=== PATIENT | female | born 1985 | race Caucasian/White ===

== ENCOUNTER 2024-09-25 02:00 | Inpatient (IN) | payer MEDICAID ==
[~2024-09-25] VITALS: Ht 152.4 cm; Wt 84.0 kg
[2024-09-25 09:16] VITALS: BP 126/92; PULSE 99; RESP 20; TEMP 97.8; O2SAT 99
[2024-09-25] MEDS ORDERED: mag hydrox/Alum hydrox/simeth 30ml oral suspension PO PRN (09:25)
[2024-09-25] MEDS ORDERED: magnesium hydroxide 30ml (MOM) UD suspension PO PRN (09:25)
[2024-09-25] MEDS ORDERED: acetaminophen 325mg tablet PO PRN ×2 (09:25)
[2024-09-25] MEDS ORDERED: NICOTINE POLACRILEX 2 MG LOZENGE BC PRN (09:25)
[2024-09-25] MEDS ORDERED: loperamide 2mg capsule PO PRN (09:25)
[2024-09-25 10:15] VITALS: RESP 20; O2SAT 100
[2024-09-25] MEDS ORDERED: PANT40SU2 PO (10:53)
[2024-09-25] MEDS ORDERED: SUCR1TAB PO (10:53)
[2024-09-25] MEDS ORDERED: ONDA-245 PO (10:53)
[2024-09-25] MEDS ORDERED: NO HOME MEDS (10:56)
[2024-09-25] MEDS ORDERED: magnesium Cl slow-release 64mg tablet PO PRN (16:30)
[2024-09-25] MEDS ORDERED: potassium Cl 20 mEq SR tablet PO PRN (16:30)
[2024-09-25] MEDS: ibuprofen tablet 400 MG TABLET PO PRN (17:13)
[2024-09-25 19:00] VITALS: RESP 14; O2SAT 98
[2024-09-25 19:07] LABS: ALANINE AMINOTRANSFERASE 32 U/L (12-78); ALBUMIN 2.9 G/DL (3.4-5.0); ALBUMIN/GLOBULIN RATIO 0.9 (1.1-1.5); ALKALINE PHOSPHATASE 76 IU/L (46-116); ANION GAP 2 (8-16); ASPARTATE AMINO TRANSFERASE 51 U/L (10-37); BILIRUBIN,TOTAL 0.7 MG/DL (0.1-1.0); BLOOD UREA NITROGEN 9 MG/DL (7-18); BUN/CREATININE RATIO 12.3 (10.0-20.0); CALCIUM 8.6 MG/DL (8.5-10.1); CHLORIDE 106 MMOL/L (99-107); CREATININE 0.73 MG/DL (0.40-0.90); GLUCOSE 76 MG/DL (70-104); MAGNESIUM 1.7 MG/DL (1.5-2.4); POTASSIUM 3.2 MMOL/L (3.5-5.1); SODIUM 141 MMOL/L (135-145); TOTAL PROTEIN 6.1 G/DL (6.4-8.2); eCRCL 73 ML/MIN; eGFR 88 ML/MIN
[2024-09-25] MEDS: K and/or MAG REPLACEMENT MC SCH (19:39)
[2024-09-25 20:00] VITALS: BP 102/72; PULSE 78; RESP 14; TEMP 98.1; O2SAT 98
[2024-09-26 07:27] VITALS: BP 140/86; PULSE 74; RESP 12; TEMP 97.7; O2SAT 98
[2024-09-26] MEDS: ibuprofen 200mg tablet PO PRN (07:38)
[2024-09-26] MEDS: potassium Cl 20 mEq SR tablet PO PRN (07:38)
[2024-09-26] MEDS: gabapentin 300mg capsule PO SCH (07:38)
[2024-09-26] MEDS: nicotine 21mg patch - 24 hr TD SCH (07:39)
[2024-09-26 07:41] VITALS: RESP 12; O2SAT 98
[2024-09-26 11:32] LABS: CHOLESTEROL 191 MG/DL (0-200); HDL CHOLESTEROL 95 MG/DL (35-60); LDL CHOLESTEROL 73 MG/DL (50-100); MAGNESIUM 1.7 MG/DL (1.5-2.4); POTASSIUM 3.6 MMOL/L (3.5-5.1); TRIGLYCERIDES 117 MG/DL (20-135)
[2024-09-26 11:53] LABS: HEMOGLOBIN A1C 4.6 % (4.5-6.2)
[2024-09-26] MEDS ORDERED: acetaminophen 325mg tablet PO PRN (18:45)
[2024-09-26] MEDS ORDERED: magnesium Cl slow-release 64mg tablet PO PRN (18:45)
[2024-09-26] MEDS ORDERED: potassium Cl 20 mEq SR tablet PO PRN ×2 (18:45)
[2024-09-26] MEDS ORDERED: magnesium sulf-water 4G/100mL 100 ML IV PRN (18:45)
[2024-09-26] MEDS ORDERED: magnesium sulf-water 2g/50mL 50 ML IV PRN (18:45)
[2024-09-26] MEDS ORDERED: potassium Cl 40MEQ/1/2NS 520ml 520 ML IV PRN (18:45)
[2024-09-26] MEDS ORDERED: ondansetron/PF 4mg/2ml inj IV PRN (18:45)
[2024-09-26] MEDS ORDERED: mag hydrox/Alum hydrox/simeth 30ml oral suspension PO PRN (18:45)
[2024-09-26] MEDS ORDERED: magnesium hydroxide 30ml (MOM) UD suspension PO PRN (18:45)
[2024-09-26 19:00] VITALS: RESP 18; O2SAT 96
[2024-09-26 19:10] LABS: BASOPHILS # (AUTO) 0.1 X10'3 (0-0.2); BASOPHILS % (AUTO) 0.9 % (0-1); EOSINOPHILS # (AUTO) 0.2 X10'3 (0-0.9); EOSINOPHILS % (AUTO) 3.8 % (0-6); HEMATOCRIT 37.8 % (35.0-45.0); HEMOGLOBIN 13.2 g/dl (12.0-16.0); LYMPHOCYTES # (AUTO) 1.7 X10'3 (1.1-4.8); LYMPHOCYTES % (AUTO) 27.2 % (21-51); MEAN CORPUSCULAR HEMOGLOBIN 35.1 PG (27.0-31.0); MEAN CORPUSCULAR VOLUME 100.2 FL (78-98); MEAN PLATELET VOLUME 7.8 FL (7.4-10.4); MONOCYTES # (AUTO) 0.5 X10'3 (0-0.9); MONOCYTES % (AUTO) 8.1 % (2-12); NEUTROPHILS # (AUTO) 3.8 X10'3 (1.8-7.7); PLATELET COUNT 228 X10'3 (140-440); RED BLOOD COUNT 3.78 X10'6 (4.20-5.60); RED CELL DISTRIBUTION WIDTH 17.1 % (11.5-14.5); WHITE BLOOD COUNT 6.3 X10'3 (4.5-11.0)
[2024-09-26 19:22] LABS: APTT 24 SECONDS (22-32); PROTHROMBIN TIME 10.4 SECONDS (9.0-12.0)
[2024-09-26 19:33] LABS: MAGNESIUM 1.7 MG/DL (1.5-2.4); PHOSPHORUS 4.1 MG/DL (2.3-4.5)
[2024-09-26 20:00] VITALS: BP 122/77; PULSE 77; RESP 18; TEMP 97.9; O2SAT 96
[2024-09-26] MEDS ORDERED: K and/or MAG REPLACEMENT MC SCH (20:00)
[2024-09-26] MEDS: docusate sod 100mg capsule PO SCH (21:40)
[2024-09-26 22:37] LABS: BILIRUBIN,URINE SMALL (Neg); CLARITY,URINE CLOUDY (Clear); GLUCOSE, URINE NEGATIVE (Neg); KETONES,URINE 40 mg/dl (Neg); LEUKOCYTE ESTERASE ,URINE NEGATIVE (Neg); OCCULT BLOOD,URINE NEGATIVE (Neg); PROTEIN,URINE 30 mg/dl (Neg); UROBILINOGEN,URINE 0.2 E.U/dL (0.2-1.0)
[2024-09-26 22:40] LABS: COLOR,URINE DARK YELLOW (Yellow); NITRITES, URINE NEGATIVE (Neg); UA COLLECTION TYPE CLN CATCH MIDSTREAM
[2024-09-26 22:41] LABS: BACTERIA,URINE 2+ /HPF (Neg); MUCUS STRANDS MODERATE /LPF (Neg); RBC,URINE NONE SEEN /HPF (0-2); SQUAMOUS EPITHELIAL CELL,UR MODERATE /LPF (FEW); WBC,URINE 0-4 /HPF (0-4)
[2024-09-26 22:42] LABS: CAL OXALATE CRYSTALS 1+ /HPF (NEGATIVE)
[2024-09-27 07:00] VITALS: RESP 12; O2SAT 98
[2024-09-27 08:00] VITALS: BP 139/87; PULSE 75; RESP 16; TEMP 97.7; O2SAT 97
[2024-09-27 08:55] LABS: MAGNESIUM 1.5 MG/DL (1.5-2.4); POTASSIUM 3.6 MMOL/L (3.5-5.1)
[2024-09-27] MEDS ORDERED: gabapentin capsule PO (13:47)
== END 2024-09-27 14:35 | disposition home or self-care (01) | DRG 751 ==
LOC: ADULT MH 02:00 → UNDOADMIN 02:00 → ADULT MH 09:10 → UNDOADMIN 09:10 → ADULT MH 09:15
PROVIDERS: ADMIT Psychiatry & Neurology Psychiatry; ATTEND Psychiatry & Neurology Psychiatry
DX: F33.3 Major depressive disorder, recurrent, severe with psychotic symptoms (principal); R45.851 Suicidal ideations; F15.259 Other stimulant dependence with stimulant-induced psychotic disorder, unspecified; F41.1 Generalized anxiety disorder; E87.6 Hypokalemia; I10 Essential (primary) hypertension
CPT/HCPCS: 36415; 80053; 80061; 81001; 83036; 83735; 83880; 84100; 84132; 85025; 85610; 85730; 87081; 93306

== ENCOUNTER 2025-01-15 21:44 | Emergency (ER) | payer MEDICAID ==
[~2025-01-15] VITALS: Ht 154.9 cm; Wt 91.9 kg
[~2025-01-15 21:44] MED LIST: DIVA250T8 PO; FOLI1TAB27 PO; GABA-1405 PO; HYDR-3717 PO; MULT-25 PO; OMEP20CA16 PO; ROPI0.2544 PO; SERT-433 PO; SULF500T59 PO; THIA100T66 PO
[2025-01-15 22:46] LABS: BASOPHILS # (AUTO) 0.2 X10'3 (0-0.2); BASOPHILS % (AUTO) 3.4 % (0-1); EOSINOPHILS # (AUTO) 0.2 X10'3 (0-0.9); EOSINOPHILS % (AUTO) 3.2 % (0-6); HEMATOCRIT 36.4 % (35.0-45.0); HEMOGLOBIN 12.6 g/dl (12.0-16.0); LYMPHOCYTES # (AUTO) 2.2 X10'3 (1.1-4.8); LYMPHOCYTES % (AUTO) 37.5 % (21-51); MEAN CORPUSCULAR HEMOGLOBIN 33.4 PG (27.0-31.0); MEAN CORPUSCULAR HGB CONC 34.5 g/dL (33.0-36.5); MEAN CORPUSCULAR VOLUME 96.6 FL (78-98); MEAN PLATELET VOLUME 7.1 FL (7.4-10.4); MONOCYTES # (AUTO) 0.8 X10'3 (0-0.9); MONOCYTES % (AUTO) 14.2 % (2-12); NEUTROPHILS # (AUTO) 2.5 X10'3 (1.8-7.7); NEUTROPHILS % (AUTO) 41.7 % (42-75); PLATELET COUNT 406 X10'3 (140-440); RED BLOOD COUNT 3.77 X10'6 (4.20-5.60); RED CELL DISTRIBUTION WIDTH 19.7 % (11.5-14.5); WHITE BLOOD COUNT 5.9 X10'3 (4.5-11.0)
[2025-01-15 22:53] LABS: BILIRUBIN,URINE NEGATIVE (Neg); CLARITY,URINE SLIGHTLY CLOUDY (Clear); COLOR,URINE YELLOW (Yellow); GLUCOSE, URINE NEGATIVE (Neg); KETONES,URINE NEGATIVE (Neg); LEUKOCYTE ESTERASE ,URINE NEGATIVE (Neg); NITRITES, URINE NEGATIVE (Neg); OCCULT BLOOD,URINE MODERATE (Neg); PROTEIN,URINE NEGATIVE (Neg); UROBILINOGEN,URINE 0.2 E.U/dL (0.2-1.0)
[2025-01-15 22:57] LABS: URINE HCG NEGATIVE (NEG)
[2025-01-15 22:58] LABS: UA COLLECTION TYPE CLN CATCH MIDSTREAM
[2025-01-15] MEDS: haloperidol lactate 5mg/ml inj IM ONE ×2 (22:58→23:01)
[2025-01-15] MEDS: MIDAZolam 5mg/ml 2ml vial IM ONE ×2 (22:58→23:00)
[2025-01-15] MEDS: diphenhydrAMINE 50 mg/ml inj IM ONE ×2 (22:59→23:01)
[2025-01-15 23:03] LABS: PLATELET ESTIMATE NORMAL
[2025-01-15 23:04] LABS: ANISOCYTOSIS 1+
[2025-01-15 23:09] LABS: URINE AMPHETAMINE SCREEN NEGATIVE (Neg); URINE BARBITUATE SCREEN NEGATIVE (Neg); URINE BENZODIAZEPINES SCREEN NEGATIVE (Neg); URINE CANNABINOID SCREEN NEGATIVE (Neg); URINE COCAINE SCREEN NEGATIVE (Neg); URINE METHADONE SCREEN NEGATIVE (Neg); URINE OPIATE SCREEN NEGATIVE (Neg); URINE PHENCYCLIDINE SCREEN NEGATIVE (Neg)
[2025-01-15 23:09] LABS: ALBUMIN 3.7 G/DL (3.4-5.0); ANION GAP 9 (8-16); BLOOD UREA NITROGEN 10 MG/DL (7-18); CALCIUM 8.6 MG/DL (8.5-10.1); CHLORIDE 108 MMOL/L (99-107); CREATININE 0.77 MG/DL (0.40-0.90); GLUCOSE 98 MG/DL (70-104); SODIUM 145 MMOL/L (135-145); THYROID STIMULATING HORMONE 6.96 ulU/ml (0.34-4.50); TOTAL CARBON DIOXIDE 27.9 MMOL/L (24-32); eCRCL 73 ML/MIN; eGFR 83 ML/MIN
[2025-01-15 23:10] LABS: BACTERIA,URINE 1+ /HPF (Neg); SQUAMOUS EPITHELIAL CELL,UR MODERATE /LPF (FEW); WBC,URINE 0-4 /HPF (0-4)
[2025-01-15 23:27] LABS: ETHANOL 327 MG/DL (<10)
[2025-01-15] MEDS: diphenhydrAMINE 50 mg/ml inj ONE (23:31)
[2025-01-15] MEDS: haloperidol lactate 5mg/ml inj ONE (23:31)
[2025-01-16 00:06] LABS: FREE T4 (FREE THYROXINE) 0.64 NG/DL (0.73-1.40)
[2025-01-16] MEDS ORDERED: ROPI0.2534 PO (08:10)
[2025-01-16] MEDS ORDERED: HYDR-3686 PO (08:10)
[2025-01-16] MEDS ORDERED: SERT50TA PO (08:10)
[2025-01-16] MEDS ORDERED: NICO-668 MM (08:10)
[2025-01-16] MEDS ORDERED: TRAM50TA2 PO (08:10)
[2025-01-16] MEDS ORDERED: NICO-687 TOP (08:10)
[2025-01-16] MEDS ORDERED: OMEP40CA21 PO (08:10)
[2025-01-16] MEDS ORDERED: FOLI1TAB27 PO (08:10)
[2025-01-16] MEDS ORDERED: LORA-268 PO (08:10)
[2025-01-16] MEDS ORDERED: THIA50TA10 PO (08:10)
[2025-01-16] MEDS ORDERED: TRAZ-256 PO (08:10)
[2025-01-16] MEDS ORDERED: traZODone 50mg tablet PO PRN (09:00)
[2025-01-16] MEDS ORDERED: NICOTINE POLACRILEX 2 MG LOZENGE BC PRN (09:00)
[2025-01-16] MEDS ORDERED: hydrOXYzine 25 MG tablet PO PRN (09:00)
[2025-01-16] MEDS: gabapentin 300mg capsule PO SCH (09:42)
[2025-01-16] MEDS: thiamine 100mg tablet PO SCH (09:42)
[2025-01-16] MEDS: pantoprazole 40mg Tablet.DR PO SCH (09:42)
[2025-01-16] MEDS: sulfaSALAZINE 500 MG tablet PO SCH (09:42)
[2025-01-16] MEDS: folic acid 1mg tablet PO SCH (09:42)
[2025-01-16] MEDS: sertraline 50mg tablet PO SCH (09:42)
[2025-01-16] MEDS: nicotine 21mg patch - 24 hr TD SCH (09:45)
[2025-01-16] MEDS: traMADol 50MG tablet PO PRN (09:47)
[2025-01-16] MEDS: LORazepam 0.5 MG tablet PO PRN (13:01)
[2025-01-16] MEDS: ondansetron 4mg rapidly disintigrating tab PO ONE (13:01)
[2025-01-16] MEDS: LORazepam 1 MG tablet PO ONE (16:21)
[2025-01-16 16:26] VITALS: BP 162/78; PULSE 82; RESP 16; TEMP 98.4; O2SAT 98
[2025-01-16] MEDS ORDERED: ROPINIRole 0.25mg tablet PO SCH (21:00)
== END 2025-01-16 17:10 | disposition home or self-care (01) ==
LOC: ER 21:45
DX: R45.851 Suicidal ideations (principal); I50.9 Heart failure, unspecified; F10.129 Alcohol abuse with intoxication, unspecified; Z20.822 Contact with and (suspected) exposure to COVID-19; Y90.9 Presence of alcohol in blood, level not specified
CPT/HCPCS: 36415; 80048; 80305; 80320; 81001; 81025; 84439; 84443; 85008; 85025; 87811; 96372; 99284; J1200; J1630; J2250; 96361; 96375; 96376; 99285